=== PATIENT | female | born 1995 | race Hispanic/Latino ===

== ENCOUNTER 2019-09-20 03:42 | Inpatient (IN) | payer OTHER ==
[2019-09-20] MEDS ORDERED: NA CHLORIDE 0.9% 1,000 ML ONE (03:58)
[2019-09-20] MEDS ORDERED: ACETAMINOPHEN 500 MG TAB ONE (04:06)
[2019-09-20 04:48] LABS: Absolute Lymphocytes (CBC) 1.8 K/uL (0.7-4.9); Basophils % 0.2 % (0-1.3); Hematocrit 36.3 % (36.0-45.0); Lymphocytes % 14.6 % (15.3-44.8); MPV 8.6 fL (7.6-11.3); RBC Red Blood Cell Count 3.95 M/uL (3.86-4.86)
[2019-09-20 05:26] LABS: BUN Blood Urea Nitrogen 6 mg/dL (7-18); Bicarbonate 21 mmol/L (21-32); Glucose Level 97 mg/dL (74-106); HCG, Quantitative 42807 mIU/mL (1-3); Potassium 3.3 mmol/L (3.5-5.1); Sodium Level 136 mmol/L (136-145)
[2019-09-20] MEDS ORDERED: FAMOTIDINE 20 MG/2 ML VIAL IV ONE (07:45)
--- NOTE | 2019-09-20 08:02 | ER ---
Nurse's Notes [facility] Name: Flora Ricks Age: 24 yrs Sex: Female : 1995 Arrival Date: 09/20/2019 Time: 03:44 Bed 5 Private MD: Diagnosis: Threatened Presentation: 09/20 03:58 Presenting complaint: Patient states: she is having intermittent back pain radiating to bb her abdomen since 0100 last night currently the pain is 9/10. Pt denies dysuria, and denies vaginal bleeding or discharge. Transition of care: patient was not received from another setting of care. Onset of symptoms was September 20, 2019. Risk Assessment: Do you want to hurt yourself or someone else? Patient reports no desire to harm self or others. Initial Sepsis Screen: Does the patient meet any 2 criteria? No. Patient's initial sepsis screen is negative. Does the patient have a suspected source of infection? No. Patient's initial sepsis screen is negative. Care prior to arrival: None. 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 - Social history:: Smoking status: Patient/guardian denies using tobacco. - Ebola Screening: : No symptoms or risks identified at this time. Screenin:27 Abuse screen: Denies threats or abuse. Nutritional screening: No deficits noted. jd3 Tuberculosis screening: No symptoms or risk factors identified. Fall Risk IV access (20 points). Ambulatory Aid- None/Bed Rest/Nurse Assist (0 pts). Gait- Normal/Bed Rest/Wheelchair (0 pts) Mental Status- Oriented to own ability (0 pts). Total Paredes Fall Scale indicates No Risk (0-24 pts). Assessment: 03:59 General: Appears in no apparent distress. uncomfortable, Behavior is calm, cooperative, jd3 appropriate for age. Pain: Complains of pain in low back area and suprapubic area Pain currently is 9 out of 10 on a pain scale. Quality of pain is described as sharp, shooting. Neuro: Level of Consciousness is awake, alert, obeys commands, Oriented to person, place, time, situation. Cardiovascular: Denies chest pain, Capillary refill < 3 seconds Patient's skin is warm and dry. Respiratory: Airway is patent Respiratory effort is even, unlabored, Respiratory pattern is regular, symmetrical, Denies cough, shortness of breath. GI: Abdomen is round non-distended, Bowel sounds present X 4 quads. Abd is soft and non tender X 4 quads. Reports lower abdominal pain, diarrhea, nausea. : Denies burning with urination, discharge, vaginal bleeding. EENT: No signs and/or symptoms were reported regarding the EENT system. Derm: Skin is intact, Skin is dry, Skin is normal, Skin temperature is warm. Musculoskeletal: Circulation, motion, and sensation intact. Range of motion: intact in all extremities. 05:03 Reassessment: Patient appears in no apparent distress at this time. No changes from jd3 previously documented assessment. Patient and/or family updated on plan of care and expected duration. Pain level reassessed. Patient is alert, oriented x 3, equal unlabored respirations, skin warm/dry/pink. 06:38 Reassessment: Patient appears in no apparent distress at this time. No changes from jd3 previously documented assessment. Patient and/or family updated on plan of care and expected duration. Pain level reassessed. Patient is alert, oriented x 3, equal unlabored respirations, skin warm/dry/pink. ultrasound at bedside. 07:20 Reassessment: Patient is alert, oriented x 3, equal unlabored respirations, skin aa5 warm/dry/pink. Pt notified of POC, awaiting Dr. Stack (WOOD PATTERNMAKER) arrival to evaluate patient, pt verbalized understanding. Pt states pain has improved. Significant other at bedside. . 07:33 Reassessment: Pt assisted with bedpan at this time. . aa5 07:40 Reassessment: Pt states "my stomach feels empty like it's upset but I am not aa5 nauseated", Dr. Rush was notified . 07:45 Reassessment: Dr. Stack at bedside examining the patient and vaginal exam completed aa5 by Dr. Stack. . 07:48 Reassessment: Dr. Stack speaking to patient and pt's family about vaginal exam aa5 findings and active miscarriage at this time. Pt and family crying at this time. Notified of need for admission by . . 08:01 Reassessment: Patient is alert, oriented x 3, equal unlabored respirations, skin aa5 warm/dry/pink. 08:06 Reassessment: Arrived at L\\T\\D and report given to GREG Martinez at bedside. . aa5 Vital Signs: 04:00 BP 131 / 78; Pulse 73; Resp 16 S; Temp 98.1(O); Pulse Ox 99% on R/A; Weight 63.96 kg bb (R); Height 5 ft. 3 in. (160.02 cm) (R); Pain 9/10; 05:02 BP 102 / 67; Pulse 86; Resp 18 S; Pulse Ox 100% on R/A; jd3 06:39 BP 118 / 72; Pulse 95; Resp 18 S; Pulse Ox 97% on R/A; jd3 07:30 BP 115 / 70; Pulse 100; Resp 18 S; Temp 98.2(O); Pulse Ox 100% on R/A; Pain 3/10; aa5 04:00 Body Mass Index 24.98 (63.96 kg, 160.02 cm) bb Vitals: 04:01 Heart Tones 148. bb ED Course: 03:44 Patient arrived in ED. ag3 03:47 Arnel Moore RN is Primary Nurse. jd3 03:55 Alexis Doe MD is Attending Physician. tw4 03:59 Triage completed. bb 04:00 Arm band placed on Patient placed in an exam room, on a stretcher, on pulse oximetry. bb Family accompanied patient. 04:26 Inserted saline lock: 20 gauge in right antecubital area, using aseptic technique. jd3 Blood collected. placed by wooju. 04:27 Patient has correct armband on for positive identification. Placed in gown. Bed in low jd3 position. Call light in reach. Side rails up X 1. Adult w/ patient. 05:12 Attending Physician role handed off by Alexis Doe MD kdr 05:12 Andrés Rush MD is Attending Physician. kdr 06:54 US OB Limited In Process Unspecified. EDMS 07:05 Report received from GREG Seals. aa5 08:00 Catrachito Stack MD is Hospitalizing Provider. kdr 08:01 No provider procedures requiring assistance completed. Patient admitted, IV remains in aa5 place. Administered Medications: 04:18 Drug: Tylenol 1000 mg Route: PO; jd3 05:15 Follow up: Response: No adverse reaction jd3 04:26 Drug: NS 0.9% 1000 ml Route: IV; Rate: 1 bolus; Site: right antecubital; jd3 07:00 Follow up: IV Status: Completed infusion; IV Intake: 1000ml aa5 07:55 Drug: Pepcid 20 mg Route: IVP; Site: right antecubital; aa5 08:00 Follow up: Response: No adverse reaction aa5 Intake: 07:00 IV: 1000ml; Total: 1000ml. aa5 Outcome: 08:01 Decision to Hospitalize by Provider. kdr 08:01 Admitted to L \\T\\ D, accompanied by nurse, via stretcher, with chart, Report called to aa5 GREG Martinez 08:01 Condition: stable 08:01 Instructed on the need for admit, Demonstrated understanding of instructions. 08:01 Patient left the ED. aa5 Signatures: Dispatcher [employer] EDMS Andrés Rush MD MD kdr Angeli Conley RN RN bb Calderon, Audri, RN RN aa Arnel Moore RN RN jd3 Wadley, Terrence, MD MD [facility] Wilma Garcia 3 Corrections: (The following items were deleted from the chart) 08:30 08:14 Patient left the ED. aa5 aa5 08:38 07:30 BP 115 / 70; Pulse 100bpm; Resp 18bpm; Spontaneous; Pulse Ox 100% RA; Pain 3/10; aa5 aa5
--- NOTE | 2019-09-20 08:03 | EDPHYS ---
Physician Documentation [facility] Name: Flora Ricks Age: 24 yrs Sex: Female : 1995 Arrival Date: 09/20/2019 Time: 03:44 Bed 5 Private MD: ED Physician Andrés Rush HPI: 09/20 04:49 This 24 yrs old Female presents to ER via Ambulatory with complaints of 16 tw4 WEEKS , ABD PAIN. 04:49 The patient presents with pelvic pain. Onset: The symptoms/episode began/occurred just tw4 prior to arrival. Modifying factors: The symptoms are alleviated by nothing, the symptoms are aggravated by nothing. The patient has not experienced similar symptoms in the past. 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 - Social history:: Smoking status: Patient/guardian denies using tobacco. - Ebola Screening: : No symptoms or risks identified at this time. ROS: 04:49 Positive for pelvic pain. tw4 04:49 Constitutional: Negative for fever, chills, and weight loss, Eyes: Negative for injury, pain, redness, and discharge, Cardiovascular: Negative for chest pain, palpitations, and edema, Respiratory: Negative for shortness of breath, cough, wheezing, and pleuritic chest pain, Abdomen/GI: Negative for abdominal pain, nausea, vomiting, diarrhea, and constipation, Back: Negative for injury and pain. 04:49 Skin: Negative for injury, rash, and discoloration, Neuro: Negative for headache, weakness, numbness, tingling, and seizure. 04:49 : Negative for foul smelling urine, vaginal bleeding, vaginal discharge, vaginal itching. Exam: 04:49 Constitutional: This is a well developed, well nourished patient who is awake, alert, tw4 and in no acute distress. Chest/axilla: Normal chest wall appearance and motion. Nontender with no deformity. No lesions are appreciated. Cardiovascular: Regular rate and rhythm with a normal S1 and S2. No gallops, murmurs, or rubs. Normal PMI, no JVD. No pulse deficits. Respiratory: Lungs have equal breath sounds bilaterally, clear to auscultation and percussion. No rales, rhonchi or wheezes noted. No increased work of breathing, no retractions or nasal flaring. Back: No spinal tenderness. No costovertebral tenderness. Full range of motion. MS/ Extremity: Pulses equal, no cyanosis. Neurovascular intact. Full, normal range of motion. Neuro: Awake and alert, GCS 15, oriented to person, place, time, and situation. Cranial nerves II-XII grossly intact. Motor strength 5/5 in all extremities. Sensory grossly intact. Cerebellar exam normal. Normal gait. 04:49 Abdomen/GI: Inspection: abdomen appears normal, Bowel sounds: normal, Palpation: moderate abdominal tenderness, in the suprapubic area. Vital Signs: 04:00 BP 131 / 78; Pulse 73; Resp 16 S; Temp 98.1(O); Pulse Ox 99% on R/A; Weight 63.96 kg bb (R); Height 5 ft. 3 in. (160.02 cm) (R); Pain 9/10; 05:02 BP 102 / 67; Pulse 86; Resp 18 S; Pulse Ox 100% on R/A; jd3 06:39 BP 118 / 72; Pulse 95; Resp 18 S; Pulse Ox 97% on R/A; jd3 07:30 BP 115 / 70; Pulse 100; Resp 18 S; Temp 98.2(O); Pulse Ox 100% on R/A; Pain 3/10; aa5 04:00 Body Mass Index 24.98 (63.96 kg, 160.02 cm) bb MDM: 03:55 Patient medically screened. tw4 06:22 Data reviewed: vital signs, nurses notes, lab test result(s), radiologic studies. kdr Counseling: I had a detailed discussion with the patient and/or guardian regarding: the historical points, exam findings, and any diagnostic results supporting the discharge/admit diagnosis, lab results, radiology results. ED course: Disposition delayed due to delay in radiology responsiveness. US ordered at \\R\\4:00 AM and at 6:30, the tech was "on the way in.". 07:01 ED course: The patient continues to be stable in the ED. VSS. US reports 16.3 IUP with kdr 4cm dilation of cervix. Have placed call and LM with Dr. Lara.. 07:16 ED course: D/w Dr. Corea - he will see the patient shortly in the ED. kdr 09/20 04:34 Order name: Basic Metabolic Panel; Complete Time: 06:22 EDMS 09/20 04:34 Order name: HCG, Quantitative; Complete Time: 06:22 EDMS 09/20 03:56 Order name: IV Saline Lock; Complete Time: 04:26 tw4 09/20 03:56 Order name: US OB Limited tw4 09/20 04:34 Order name: CBC with Automated Diff; Complete Time: 06:22 EDMS 09/20 04:34 Order name: ABO/RH typing; Complete Time: 06:22 EDMS 09/20 06:34 Order name: Urine Dipstick--Ancillary (enter results) eb 09/20 03:56 Order name: Labs collected and sent; Complete Time: 04:26 tw4 09/20 03:56 Order name: NPO; Complete Time: 03:59 tw4 09/20 03:56 Order name: Urine Dipstick-Ancillary (obtain specimen); Complete Time: 07:33 tw4 Administered Medications: 04:18 Drug: Tylenol 1000 mg Route: PO; jd3 05:15 Follow up: Response: No adverse reaction jd3 04:26 Drug: NS 0.9% 1000 ml Route: IV; Rate: 1 bolus; Site: right antecubital; jd3 07:00 Follow up: IV Status: Completed infusion; IV Intake: 1000ml aa5 07:55 Drug: Pepcid 20 mg Route: IVP; Site: right antecubital; aa5 08:00 Follow up: Response: No adverse reaction aa5 Disposition: 09/20/19 08:01 Hospitalization ordered by Catrachito Stack for Observation. Preliminary diagnosis is Threatened . - Bed requested for Telemetry/MedSurg (observation). - Status is Observation. aa5 - Condition is Fair. - Problem is new. - Symptoms are unchanged. UTI on Admission? No Signatures: Dispatcher [employer] EDMS Andrés Rush MD MD kdr Angeli Conley, RN RN bb Verona Herrera RN RN aa5 Arnel Moore RN RN jd3 Alexis Doe MD MD tw4 Corrections: (The following items were deleted from the chart) 05:48 05:33 CBC+H.LAB.BRZ ordered. EDMS EDMS 05:49 05:33 QUANTITATIVE HCG+C.LAB.BRZ ordered. EDMS EDMS 05:49 05:33 ABO/RH TYPING+BB.LAB.BRZ ordered. EDMS EDMS 05:49 05:33 BASIC METABOLIC PANEL+C.LAB.BRZ ordered. EDMS EDMS 08:14 08:01 Hospitalization Ordered by Catrachito Stack MD for Observation. Preliminary aa5 diagnosis is Threatened . Bed requested for Telemetry/MedSurg (observation). Status is Observation. Condition is Fair. Problem is new. Symptoms are unchanged. UTI on Admission? No. kdr
--- NOTE | 2019-09-20 08:17 | RAD REPORT ---
EXAM DESCRIPTION: US - OB Limited - 09/20/2019 6:54 am CLINICAL HISTORY: Abdominal cramping. COMPARISON: None FINDINGS: Single live intrauterine cephalic presentation. Anterior placenta. Cardiac activity 148 beats per minute BPD 3.5 centimeter 16 weeks 5 days HC 13.5 centimeter 16 weeks 6 days AC 12.1 centimeter 17 weeks 5 days FL 1.8 centimeters 15 weeks 2 days The amount of amniotic fluid is diminished. The greatest pocket of fluid is 2 centimeters. The cervical os is widely opened. Fluid is present throughout the cervical canal. The cervix is short ened. IMPRESSION: Incompetent cervix. Single live intrauterine with an estimated gestational age 16 weeks 3 days EDA 03/03/2020 Oligohydramnios
[2019-09-20 08:25] VITALS: O2SAT 97
[2019-09-20] MEDS ORDERED: BUTORPHANOL 1 MG/ML INJ ONE (08:25)
[2019-09-20] MEDS ORDERED: PROMETHAZINE 25 MG/ML VIAL ONE (08:25)
[2019-09-20] MEDS ORDERED: OXYTOCIN/LR 20 UNIT/1,000 ML BAG IV ONE ×2 (08:39→14:30)
[2019-09-20] MEDS ORDERED: METHYLERGONOVINE 0.2MG/ML AMP IM ONE (08:39)
[2019-09-20] MEDS ORDERED: LIDOCAINE 1% MPF 30 ML VIAL ONE (08:41)
[2019-09-20] MEDS ORDERED: PROMETHAZINE 25 MG/ML VIAL IV PRN (08:52)
[2019-09-20] MEDS ORDERED: BUTORPHANOL 1 MG/ML INJ IV PRN (08:52)
[2019-09-20] MEDS ORDERED: METHYLERGONOVINE 0.2MG/ML AMP IM PRN (08:52)
[2019-09-20] MEDS ORDERED: Ringers Lactate 1,000 ML IV PRN (08:52)
[2019-09-20] MEDS ORDERED: Ringers Lactate 1,000 ML IV SCH (09:00)
[2019-09-20 09:21] VITALS: BMI 25.0
[2019-09-20] MEDS ORDERED: INFLUENZA VACCINE (for 3y+) 0.5 ML DOSE IMVAC ONE (10:00)
--- NOTE | 2019-09-20 10:35 | PREOPHP ---
Date of Admission: 09/20/2019 Ms. Ricks is a 24-year-old female 1, para 0, at approximately 16+ weeks gestation. She has been followed by a physician in [place]. She has noticed earlier in the week of low back amanda n which became worse and became more like labor pains. Last night, she presents to the emergency puneet for evaluation. On evaluation, she was noted by ultrasound examination to be between 4 and 5 cm di lated, vertex presentation, presenting at the cervix. Because of this, I was called for STAFFING ANALYST manag ement. Ms. Ricks reports that she has had no problems during this prior to this point. No prior bleeding or spotting. She had an upper respiratory infection approximately 2 weeks ago, but d id not have a high fever with it. She reports she has had constipation issues during the , but nothing else. She has been on no medications other than vitamins. She denies any signi ficant bleeding currently. Past Medical History: Reveals no prior hospitalizations, accidents, illnesses, injuries. Social History: She does not smoke. Allergies: SHE HAS NO KNOWN ALLERGIES. Family History: Noncontributory. Review of Systems: Other than mild upper respiratory infection approximately 2 weeks ago she denies any other respirator y complaints. She does not suffer significantly from nausea and vomiting early in . She de nies any breast knots or lumps. She denies any bowel or bladder issues other than tendency towards c onstipation. Physical Examination: General: Reveals a female in mild discomfort. Neck: Supple without adenopathy or thyromegaly. Lungs: Clear. Cardiac: Regular rate and rhythm without murmurs. Breasts: Not examined. Abdomen: Nontender without organosplenomegaly. Pelvic membranes are bulging, almost to the introitu s. Extremities: No cyanosis, clubbing, or edema. Impression: 16+ week by ultrasound and apparently dates with imminent early second trimest er delivery. This is explained to the patient's mother, her significant other's family, will transfe r patient to Labor and Delivery for management of the remainder of the . ANTWAN/TOMASZ Voice ID: [id number]
[2019-09-20] MEDS ORDERED: KETOROLAC 30 MG/ML INJ ONE (10:42)
[2019-09-20] MEDS ORDERED: KETOROLAC 30 MG/ML INJ IV ONE (10:47)
[2019-09-20] MEDS ORDERED: miSOPROStoL 100 MCG TAB ONE (12:00)
[2019-09-20] MEDS: miSOPROStoL 100 MCG TAB PO SCH (17:59)
--- NOTE | 2019-09-21 02:21 | OP ---
Surgeon: Catrachito Stack MD Preoperative Diagnosis: 16+ week with previable delivery. Postoperative Diagnosis: 16+ week with previable delivery. Procedure: Delivery. Indications: The patient is a 24-year-old female, 1, para 0, at approximately 16+ w eeks gestation, presenting with back pain, membranes were bulging through the cervical os, which had been documented by ultrasound to be approximately 4-5 cm dilated. After several hours of observation , she had spontaneous rupture of membranes, rapid delivery of fetus, initial period of observation an d treatment with dilute solution of Pitocin and then 200 mcg of misoprostol p.o., an additional 2 miranda rs of observation, and then delivery of the placenta occurred with ring clamp, the cervical os was ex plored. No further tissue was noted. Estimated total blood loss was less than 100 mL. The patient was given a couple of 1 mg doses of Stadol, one 12.5 mg dose of Phenergan, and 1 dose IV of Toradol o f 30 mg and tolerated procedures adequately. No lacerations, tears were otherwise noted. ANTWAN/TOMASZ Voice ID: [id number] Report ID: [id number]
[2019-09-21 03:16] LABS: RPR (Rapid Plasma Reagin) NON-REACT (NON-REACT)
[2019-09-21] MEDS: miSOPROStoL 100 MCG TAB PO SCH ×2 (06:00)
[2019-09-21 07:51] VITALS: BP 96/50; TEMP 98.1
[2019-09-21] MEDS ORDERED: INFLUENZA VACCINE (for 3y+) 0.5 ML DOSE IMVAC ONE (08:01)
[2019-09-23 21:17] LABS: HBsAG Nonreactive (Nonreactive)
--- NOTE | 2019-09-24 08:57 | DS ---
Date of Discharge: 09/21/2019 Final Hospital Discharge Diagnosis: 16+ week , delivered. Complications: None. Procedure: Delivery of previable fetus. Hospital Course: Patient is a 24-year-old female, 1, para 0, at 16+ weeks gestation , presenting with cervical dilatation between 4 and 5 cm with bulging amniotic sac at 16+ weeks gesta tion. She delivered 108 g nonviable fetus, was dismissed on the first post- day, to be seen back in my office in 2 weeks. Lab work included O positive blood type. Admission hemoglobin and hem atocrit of 12.6 and 36.3. She was dismissed with misoprostol 100 mcg 1 p.o. q.6 hours two tablets. To take ibuprofen for any discomfort and to continue taking her vitamins. ANTWAN/TOMASZ Voice ID: [id number] Report ID: [id number]
== END 2019-09-21 11:25 | disposition home or self-care (01) | DRG 779 ==
LOC: ER 03:42 → 2ND-WC 08:30 → OBSVTOIN 08:30
PROVIDERS: ADMIT Specialist; ATTEND Specialist
PROC: 10D17Z9 Manual Extraction of Products of Conception, Retained, Via Natural or Artificial Opening (ICD-10-PCS; principal; 2019-09-20)
DX: O02.1 Missed abortion (principal); Z23 Encounter for immunization
CPT/HCPCS: 36415; 76815; 80048; 84702; 85025; 86592; 86900; 86901; 87340; 88300; 88305; 88307; 90471; 96361; 96374; 99285; J0595; J2210; J2550; J2590; J7030; Q2035